=== PATIENT | female | born 1960 | race Two or more races ===

== ENCOUNTER → 2019-12-09 09:49 | Outpatient (CLI) | payer BC, SELFPAY ==
--- NOTE | ~2019-12-09 | MM_ITS ---
EXAMINATION: MM diagnostic ngozi RT w monroe HISTORY: Right breast calcification follow-up TECHNIQUE: Additional 3-D tomosynthesis images of the right breast were performed and synthetic 2-D i mages were generated. CAD analysis was submitted and interpreted. COMPARISON: Comparison to multiple prior studies sequentially, with oldest reviewed study dated 01/29. FINDINGS: Punctate calcifications upper outer quadrant of the right breast are not significantly resendez ged from prior examinations allowing for differences of technique. Breast composed of scattered areas of fibroglandular density. No new masses or architectural distortion. IMPRESSION: 1. Stable benign-appearing right breast calcifications. No mammographic evidence for malignancy. 2. Routine yearly screening mammogram and regular clinical breast examination are recommended. BI-RADS Category 2: Benign finding(s). Reviewed, dictated and finalized at location A. [facility]LLER IMPRESSION: 1. Stable benign-appearing right breast calcifications. No mammographic evidenc e for malignancy. 2. Routine yearly screening mammogram and regular clinical breast examination a re recommended. BI-RADS Category 2: Benign finding(s).
== END ==
PROVIDERS: Visit Provider Obstetrics & Gynecology
DX: R92.8 Other abnormal and inconclusive findings on diagnostic imaging of breast (principal)
CPT/HCPCS: 77061; 77065; G0279

== ENCOUNTER 2020-01-06 15:38 | Emergency (ER) | payer BC, SELFPAY ==
[2020-01-06 15:47] VITALS: BP 140/72; PULSE 77; RESP 16; TEMP 36.4; O2SAT 99
--- NOTE | 2020-01-06 15:59 | ED.BACK ---
HPI - Back Pain/Injury General Chief Complaint: Back Pain/Injury Stated Complaint: Back pain History of Present Illness HPI Narrative: This is a 59-year-old female comes in complaining of back pain towards the right side patient states she is been cleaning the oven and everything she is cleaning up in her back is been hurting is been for 3 days ibuprofen has not vaccinated. Related Data Home Medications Medication Instructions Recorded Confirmed ergocalciferol (vitamin D2) 1 mcg PO WEEKLY 01/06/20 01/06/20 [Vitamin D2] lovastatin 40 mg PO DAILY 01/06/20 01/06/20 Allergies Allergy/AdvReac Type Severity Reaction Status Date / Time No Known Allergies Allergy Verified 01/06/20 15:50 Review of Systems Review of Systems: Narrative: CONSTITUTIONAL: Denies fever, chills, or sweats. EYES: Denies visual changes, redness, or discharge. ENT: Denies rhinorrhea, congestion, sore throat, or otalgia. CARDIOVASCULAR:Denies chest pain, palpitations, or edema. RESPIRATORY: Denies cough or dyspnea. GASTROINTESTINAL: Denies abdominal pain, nausea, vomiting, or diarrhea. GENITOURINARY: Denies dysuria or hematuria. SKIN:[Denies rash or itching. MUSCULOSKELETAL: Reports back pain, joint pain, or myalgia. NEUROLOGIC: Denies headache, numbness, or weakness. PSYCHIATRIC:Denies anxiety or depression PMFSH Social History Social History Gender identity (if verbalized by the patient): Female Comments At time as signature, I have reviewed and agree with nursing past medical, social, surgical and family history. Please see nursing chart for further information. There is no relevant family history pertinent to the presenting complaint. Exam Narrative: Exam Narrative: GENERAL:Well-appearing, well-nourished, and in no acute distress. HEAD:Normocephalic, atraumatic. EYES: PERRLA and EOMI. ENT: Nares clear, no rhinorrhea or epistaxis. Mucous membranes moist. NECK: Supple. CHEST: Clear to auscultation. No respiratory distress. HEART: Regular rate and rhythm. No murmur heard. Normal peripheral pulses. ABDOMEN: Soft, nontender, nondistended, normal active bowel sounds. EXTREMITIES: Normal range of motion. No edema. Back pain painful to palpitation denies any shooting pain SKIN: Warm, dry, no rash. NEURO: No focal deficits. Alert and oriented x3. Course Vital Signs Vital signs: Vital Signs Temperature 97.6 F 01/06/20 15:47 Pulse Rate 77 01/06/20 15:47 Respiratory Rate 16 01/06/20 15:47 Blood Pressure 140/72 01/06/20 15:47 Pulse Oximetry 99 01/06/20 15:47 Temperature 97.6 F 01/06/20 15:47 Pulse Rate 77 01/06/20 15:47 Respiratory Rate 16 01/06/20 15:47 Blood Pressure 140/72 01/06/20 15:47 Pulse Oximetry 99 01/06/20 15:47 MDM - Back Pain/Injury Differential Diagnosis Differential diagnosis: Likely lumbar radiculopathy, sciatica, strain of lumbar region and thoracic back pain Discharge Plan Discharge Clinical Impression: Strain of lumbar region Qualifiers: Encounter type: initial encounter Qualified Code(s): S39.012A - Strain of muscle, fascia and tendon of lower back, initial encounter Patient Disposition: Home, Self-Care Condition: Stable Instructions: Antibiotic Form, Acute Low Back Pain (ED) Prescriptions: New methylprednisolone [Medrol (Cristhian)] 4 mg tablets,dose pack See Rx Instructions .ROUTE .COMPLEX Qty: 21 RF: 0 cyclobenzaprine 5 mg tablet 5 mg PO TID PRN (Reason: muscle spasm) Qty: 20 RF: 0 No Action lovastatin 40 mg tablet 40 mg PO DAILY RF: 0 ergocalciferol (vitamin D2) [Vitamin D2] 1,250 mcg (50,000 unit) capsule 1 mcg PO WEEKLY RF: 0 Follow-up/Referrals: UNKNOWN,DOCTOR [Primary Care Provider] - Time of Disposition: 16:01 Discharge Date/Time: 01/06/20 16:05
== END 2020-01-06 16:05 | disposition home or self-care (01) ==
PROVIDERS: Emergency Provider Nurse Practitioner Family
DX: S39.012A Strain of muscle, fascia and tendon of lower back, initial encounter (principal); X58.XXXA Exposure to other specified factors, initial encounter; Y93.E9 Activity, other interior property and clothing maintenance; E78.00 Pure hypercholesterolemia, unspecified
CPT/HCPCS: 99213; G0463

== ENCOUNTER 2020-01-10 10:59 | Emergency (ER) | payer BC, SELFPAY ==
[2020-01-10 11:13] VITALS: BP 146/78; PULSE 79; RESP 18; TEMP 36.4; O2SAT 98
--- NOTE | 2020-01-10 11:30 | ED.ABDPAIN ---
HPI - Abdominal Pain General Chief Complaint: Back Pain/Injury <Phani Hernandez PA-C - Last Filed: 01/10/20 12:18> Stated Complaint: back pain <Phani Hernandez PA-C - Last Filed: 01/10/20 12:18> Time Seen by Provider: 01/10/20 11:03 <Phani Hernandez PA-C - Last Filed: 01/10/20 12:18> Source: patient and old records reviewed <Phani Hernandez PA-C - Last Filed: 01/10/20 12:18> Mode of arrival: ambulatory <Phani Hernandez PA-C - Last Filed: 01/10/20 12:18> Limitations: no limitations <Phani Hernandez PA-C - Last Filed: 01/10/20 12:18> History of Present Illness HPI narrative: Patient is a 59-year-old female evaluation of continued back pain was seen several days prior for the same complaint that began after cleaning which is pain over the left SI joint that radiates into the thigh down to the leg patient denies other injury or trauma patient had taken the medications with minimal improvement has continued pain worse with activity and movement denies new injury plane illness and presents in no distress in the room per private vehicle <Phani Hernandez PA-C - Last Filed: 01/10/20 12:18> Related Data Home Medications: Home Medications Medication Instructions Recorded Confirmed ergocalciferol (vitamin D2) 1 mcg PO WEEKLY 01/06/20 01/06/20 [Vitamin D2] lovastatin 40 mg PO DAILY 01/06/20 01/06/20 <Phani Hernandez PA-C - Last Filed: 01/10/20 12:18> Allergies/Adverse Reactions: Allergies Allergy/AdvReac Type Severity Reaction Status Date / Time No Known Allergies Allergy Verified 01/10/20 11:20 <Phani Hernandez PA-C - Last Filed: 01/10/20 12:18> Review of Systems Review of Systems: All systems reviewed & are unremarkable except as noted in HPI and below <Phani Hernandez PA-C - Last Filed: 01/10/20 12:18> PMFSH Social History Social History: Social History Gender identity (if verbalized by the patient): Female <DEANN Moore Last Filed: 01/10/20 12:18> Exam Narrative: Exam Narrative: GENERAL: Well-appearing, well-nourished, and in no acute distress. HEAD: Normocephalic, atraumatic. EYES: PERRLA and EOMI. ENT: Nares clear, no rhinorrhea or epistaxis. Mucous membranes moist. CHEST: Clear to auscultation. No respiratory distress. No wheezes rales or rhonchi HEART: Regular rate and rhythm. No murmur heard. Normal peripheral pulses. ABDOMEN: Soft, nontender, nondistended EXTREMITIES: Normal range of motion. No edema. Tenderness over the bilateral SI joints SKIN: Warm, dry, no rash. NEURO: No focal deficits. Alert and oriented x3. Normal speech and gait. Motor and sensory intact and symmetrical in the extremities PSYCH: Normal mood and affect. <DEANN Moore Last Filed: 01/10/20 12:18> Course Course Emergency Course: Patient in the room in no distress aware of case findings treatment plan and diagnosis <DEANN Moore Last Filed: 01/10/20 12:18> Vital Signs Vital signs: Vital Signs Temperature 36.4 C 01/10/20 11:13 Pulse Rate 79 01/10/20 11:13 Respiratory Rate 18 01/10/20 11:13 Blood Pressure 146/78 H 01/10/20 11:13 Pulse Oximetry 98 01/10/20 11:13 Temperature 36.4 C 01/10/20 11:13 Pulse Rate 79 01/10/20 11:13 Respiratory Rate 18 01/10/20 11:13 Blood Pressure 146/78 H 01/10/20 11:13 Pulse Oximetry 98 01/10/20 11:13 <DEANN Moore Last Filed: 01/10/20 12:18> Vital Signs Temperature 36.4 C 01/10/20 11:13 Pulse Rate 79 01/10/20 11:13 Respiratory Rate 18 01/10/20 11:13 Blood Pressure 146/78 H 01/10/20 11:13 Pulse Oximetry 98 01/10/20 11:13 Temperature 36.4 C 01/10/20 11:13 Pulse Rate 79 01/10/20 11:13 Respiratory Rate 18 01/10/20 11:13 Blood Pressure 146/78 H 01/10/20 11:13 Pulse Oximetry 98 01/10/20 11:13 <Maria Eugenia Mary MD - [place]
== END 2020-01-10 12:37 | disposition home or self-care (01) ==
PROVIDERS: Emergency Provider Emergency Medicine
DX: M53.3 Sacrococcygeal disorders, not elsewhere classified (principal)
CPT/HCPCS: 99283

== ENCOUNTER → 2020-06-30 10:22 | Outpatient (CLI) | payer BC, SELFPAY ==
--- NOTE | ~2020-06-30 | MM_ITS ---
EXAMINATION: MM screening ngozi BI w monroe HISTORY: Screening mammogram TECHNIQUE: Craniocaudal and mediolateral oblique 3-D tomosynthesis images were obtained and synthetic 2-D images were generated. CAD analysis was submitted and interpreted. COMPARISON: 12/09/2019 diagnostic right digital mammogram 06/05/2019 diagnostic right digital mammogram 05/27/2019 bilateral digital screening mammogram 06/02/2018 bilateral digital screening mammogram BREAST PARENCHYMAL COMPOSITION: There are scattered areas of fibroglandular density. FINDINGS: There are occasional bilateral benign-appearing punctate microcalcifications. There is no e vidence of suspicious mass, calcification, or architectural distortion to suggest malignancy in eithe r breast. There has been no suspicious interval change. IMPRESSION: 1. No mammographic evidence of malignancy. 2. Recommend routine screening mammography in one year. BI-RADS Category 2: Benign finding(s). Reviewed, dictated and finalized at location A.
== END ==
PROVIDERS: Visit Provider Obstetrics & Gynecology
DX: Z12.31 Encounter for screening mammogram for malignant neoplasm of breast (principal)
CPT/HCPCS: 77063; 77067

== ENCOUNTER 2025-09-07 13:24 | Emergency (ER) | payer OTHER, SELFPAY ==
--- NOTE | ~2025-09-07 | XR_ITS ---
Examination: [id number] Clinical History: pain lower medial 2-3 months Comparison: None Technique: 2 views right knee Findings/impression: 1. No fracture, dislocation, or effusion right knee. Reviewed, dictated and finalized at location R. ETIC DOCTOR
[2025-09-07 13:33] VITALS: BP 126/63; PULSE 78; RESP 16; TEMP 37.1; O2SAT 100
--- NOTE | 2025-09-07 13:41 | ED.EXTPRO ---
HPI - Extremity Problem General Chief complaint: Extremity Problem,Nontraumatic Stated complaint: pain in right knee Time Seen by Provider: 09/07/25 13:41 Source: patient, RN notes reviewed and old records reviewed Mode of arrival: ambulatory Limitations: no limitations History of Present Illness HPI Narrative: 65-year-old female presents to the [facility] with 2-3 month history of right knee pain medial aspect lower. States she to 3 days ago it got a little bit worse. Denies any injury. Has an appointment with orthopedic in September but states that she wanted to see if she can get an injection today. Reports she has taken ibuprofen. Related Data Home Medications ?Medication ?Instructions ?Recorded ?Confirmed ?Last Taken ?Type ergocalciferol (vitamin D2) 1,250 1 mcg PO WEEKLY 01/06/20 01/06/20 Unknown History mcg (50,000 unit) capsule (Vitamin D2) lovastatin 40 mg tablet 40 mg PO DAILY 01/06/20 01/06/20 Unknown History omeprazole 40 mg capsule,delayed mg 09/07/25 Unknown History release pravastatin 10 mg tablet mg 09/07/25 Unknown History Allergies Allergy/AdvReac Type Severity Reaction Status Date / Time No Known Allergies Allergy Verified 09/07/25 13:39 Review of Systems Review of Systems: All systems reviewed & are unremarkable except as noted in HPI and below Constitutional: Constitutional: Reports no additional constitutional complaints Musculoskeletal: Musculoskeletal: Reports as per HPI, Reports arthralgias and Reports joint swelling Integumentary/Breasts: Skin/Breast: Reports system reviewed and no additional complaints, except as docu PMFSH Social History Social History Gender identity (if verbalized by the patient): Female Comments At the time of my signature, I reviewed and agree with the nursing past medical, surgical, social, and family history. There is no relevant family history pertinent to the patient complaint. Exam Const: General: cooperative, healthy appearing, comfortable, no acute distress, well developed, alert and well nourished Nutritional Appearance: well nourished Orientation/consciousness: patient oriented x3 Limitations: no limitations HENMT: Head: normal to inspection Eyes: General: appearance normal, both eyes and all related structures Alignment and Position: alignment normal Neck: Neck: normal visual inspection, full ROM, no lymphadenopathy and no meningeal signs Chest: Chest palpation & inspection: normal inspection of the chest Resp: Effort & Inspection: normal respiratory effort and able to speak in complete sentences Cardio: Rate: regular rate Skin: General skin exam: normal color and no rashes or lesions noted Neuro: General: patient oriented x3, gait normal, moves all extremities and no meningeal signs Cognition (Neuro): normal cognition Speech: normal speech Gait exam (Neuro): Normal gait present Extrem: General: normal to inspection, full ROM, capillary refill normal and normal gait Right lower extremity: full ROM, normal capillary refill and knee Details: tenderness, swelling and normal ROM Knee images:  1. Tenderness with mild swelling. No erythema, ecchymosis. Psych: Appearance: grossly normal and well kempt Mental Status: mental status grossly normal Speech and movement: Normal speech and movement present and Clear speech present Affect: normal affect Attitude: cooperative Course Course Level of Care: Express Care Visit Vital Signs Vital signs: Vital Signs Temperature 98.7 F 09/07/25 13:33 Pulse Rate 78 09/07/25 13:33 Respiratory Rate 16 09/07/25 13:33 Blood Pressure 126/63 09/07/25 13:33 Pulse Oximetry 100 09/07/25 13:33 Oxygen Delivery Room Air 09/07/25 13:33 Temperature 98.7 F 09/07/25 13:33 Pulse Rate 78 09/07/25 13:33 Respiratory Rate 16 09/07/25 13:33 Blood Pressure 126/63 09/07/25 13:33 Pulse Oximetry 100 09/07/25 13:33 Oxygen Delivery Room Air 09/07/25 13:33 Reviewed MDM - Extremity (Nontraumatic) MDM Narrative Medical decision making narrative: patient sitting in exam room. Patient is nontoxic, vitals stable. Patient with 2-3 months of right knee pain. Already has of appointment with orthopedic in September. Denies any injury. X-ray with no acute findings. Patient is appropriate for outpatient treatment with close follow-up. Discharge instructions reviewed with patient, as well as provided in writing per nursing staff. The instructions also include specific and strict return/GO TO THE ER as well as f/u information. All questions have been answered, and the patient deny any further questions with discharge and discharge plan. Some parts of this dictation were generated by voice recognition software and may contain typographical and/or grammatical inaccuracies. Differential Diagnosis Differential diagnosis: Likely other ( Sprain, ACL, MCL, meniscus, arthritis) Imaging Data Radiologist's impression: Examination: [id number] Clinical History: pain lower medial 2-3 months Comparison: None Technique: 2 views right knee Findings/impression: 1. No fracture, dislocation, or effusion right knee. Critical Care Time Critical Care Time Critical Care Time: No Discharge Plan Discharge Clinical Impression: Pain and swelling of right knee Patient Disposition: Home Condition: Stable Instructions: Antibiotic Form, Swollen Knee Joint (ED), Knee Pain (ED) Additional Instructions: take meloxicam as prescribed. While a meloxicam do not take ibuprofen or naproxen. You can take Tylenol 500 mg to help manage the pain. Apply ice or heat whichever feels better. Apply every 2-3 hours for 15-20 minutes while awake follow-up with primary care provider follow-up with orthopedist as already scheduled in September for further evaluation Patient Language: Bruneian Prescriptions: New meloxicam 7.5 mg tablet 7.5 mg PO DAILY Qty: 14 0RF No Action lovastatin 40 mg tablet 40 mg PO DAILY ergocalciferol (vitamin D2) [Vitamin D2] 1,250 mcg (50,000 unit) capsule 1 mcg PO WEEKLY cyclobenzaprine 5 mg tablet 5 mg PO TID PRN (Reason: muscle spasm) Qty: 20 0RF omeprazole 40 mg capsule,delayed release(DR/EC) pravastatin 10 mg tablet Follow-up/Referrals: Fredrick Kat MD [Primary Care Provider, Family Practice] Stand Alone Forms: Work/School Release IP Time of Disposition: 14:18
== END 2025-09-07 14:25 | disposition home or self-care (01) ==
PROVIDERS: Emergency Provider Nurse Practitioner; PCP Emergency Medicine
DX: M25.561 Pain in right knee (principal); M25.461 Effusion, right knee; E78.00 Pure hypercholesterolemia, unspecified
CPT/HCPCS: 73560; 99213; G0463